=== PATIENT | male | born 1925 | race Caucasian/White ===

== ENCOUNTER 2016-07-08 09:14 | Inpatient (IN) | payer MEDICARE, OTHER ==
[~2016-07-08] VITALS: Ht 182.9 cm; Wt 80.3 kg
[2016-07-18] MEDS ORDERED: COUMADIN1 MG PO (06:16)
[2016-07-18] MEDS ORDERED: PEPCID DPS20 MG PO (06:17)
[2016-07-18] MEDS ORDERED: FEOSOL-DPS325 MG PO (06:17)
[2016-07-18] MEDS ORDERED: LOPRESSOR DPS50 MG PO (06:17)
[2016-07-18] MEDS ORDERED: KLOR-CON M2020 ME1 PO (06:17)
[2016-07-18] MEDS ORDERED: SURFAK DPS240 MG PO (06:18)
[2016-07-18] MEDS ORDERED: SINEMET 25/1001 TAB PO (06:18)
[2016-07-18] MEDS ORDERED: MAALOX DPS30 ML PO (06:18)
[2016-07-18] MEDS ORDERED: TYLENOL DPS325 MG PO (06:18)
[2016-07-18] MEDS ORDERED: REQUIP DPS0.5 MG PO (06:19)
[2016-07-18] MEDS ORDERED: ASA CHILDREN'S81 MG PO (06:19)
[2016-07-27] MEDS ORDERED: MIRALAX PACKET17 GM PO (06:40)
[2016-07-27] MEDS ORDERED: NITROSTAT0.4 MG SL (06:42)
--- NOTE | 2016-07-29 08:03 | ER ---
ADMIT: 07/08/2016 RM/LOC: 526 [facility] MR#: [id number] [address] [address] PIPPA CARD [address] [place] [address] Emergency Room Report SEX: M AGE: 89 : 1925 DATE: 07/08/2016 HISTORY OF PRESENT ILLNESS: An 89-year-old gentleman with 24 to 48 hours worth of increasing generalized weakness. He states he is no longer able to get around his home because he is excessively weak. There are no focal findings. He has no other complaints. No fever or chills. No cough. No vomiting. No diarrhea. No pain anywhere. Just is excessively weak. Says this has been slowly progressive over the past 24 to 48 hours. PAST MEDICAL HISTORY: Significant for: 1. Parkinson's disease. 2. Atrial fibrillation. 3. Cardiac bypass. 4. Chronic wound on the right lower extremity, near the ankle, [facility] which [facility]. PHYSICAL EXAMINATION: GENERAL: Limited exam reveals an 89-year-old gentleman, who is pleasant, conversant, merely says he is feeling too weak to get around his home. LUNGS: Clear to auscultation. CARDIOVASCULAR: He does have a 3/6 systolic ejection murmur. Regular rate and rhythm. ABDOMEN: Soft, nontender, with positive bowel sounds. EXTREMITIES: Reveal well-healing abrasion on the right leg, it is approximately 6 cm in length. LABORATORY DATA: Pertinent labs; white count is 4.9, hemoglobin 8.3. BUN 26, creatinine 1.8. Total bilirubin 2.6. UA is pending at the time of this dictation. Chest x-ray, I cannot see any obvious infiltrates. The patient is being admitted for: 1. Acute renal failure. 2. Anemia. 3. Volume depletion. 4. Hyperbilirubinemia. Salvatore Oliva MD/ sukhdev JOB #: [id number] CC: Justin Wall DO, Attending Physician Justin Wall DO, Family Physician
--- NOTE | 2016-08-05 12:20 | CO ---
ADMIT: 07/10/2016 RM/LOC: 526 [facility] MR#: [id number] [address] [facility] [address] [place], [place] [address] [address]PA [address] [place] [address] Consultation SEX: M AGE: 89 : 1925 DATE OF CONSULTATION: 07/11/2016 ATTENDING PHYSICIAN: Justin Wall CONSULTING PHYSICIAN: Jerzy Gardner MD You can see full dictated consult by Jayson Rivera. Pippa is a pleasant 89-year-old gentleman who had some weakness at home, found to be anemic with hemoglobin of 8.3, denied any real abdominal pain, nausea, or vomiting; maybe a little constipated but had not noticed any blood in his stools. He is on Coumadin and aspirin routinely. His INR when he came in at least on the was 1.58. Actually, it had been significantly high. Yesterday, his INR was 2.57. Today, it is 3.98, and presently I thought they were not giving his Coumadin, so it has been going up almost 4 now interestingly as well. Looking through his records, it looks like in 2014, Dr. Wall had done a colonoscopy a couple of benign tubular adenomas at that time. He denies taking any significant extra aspirin, ibuprofen, or things of that nature. Otherwise from a Jayson dictated history and review of systems, nothing else has changed. I have examined the patient as well. There are no significant acute findings for his abdomen or anything else that makes me worried. We were asked to see him for a colonoscopy and EGD. I will visit with Dr. Wall, it has only been a couple of years but we can plan on prepping him over the next day or so when his INR is back down to reasonable level as long as they are holding his Coumadin and do scopes most likely on . Jerzy Gardner MD/ sukhdev JOB #: [id number] CC: Justin Wall, Attending Physician Justin Wall, Family Physician
--- NOTE | 2016-08-05 12:20 | CO ---
ADMIT: 07/10/2016 RM/LOC: 526 [facility] MR#: [id number] [id number] [place], [place] [address] PIPPA C[address] [place] [address] Consultation SEX: M AGE: 89 : 1925 DATE OF CONSULTATION: 07/11/2016 ATTENDING PHYSICIAN: Justin Wall CONSULTING PHYSICIAN: Jerzy Gardner MD REASON FOR CONSULTATION: Anemia, rule out gastrointestinal blood loss. HISTORY OF PRESENT ILLNESS: Pippa is a very pleasant 89-year-old male, who apparently three days ago had sudden onset of weakness at his home. He was making his bed until he became weak and fell to the floor. He denies hitting his head or any loss of consciousness or syncopal episodes. Because of his symptoms, he was seen in the emergency room and was found to be anemic with a hemoglobin of 8.3. The patient denies any nausea, vomiting, or pain. He goes through cyclic episodes of his bowel movements, where he becomes constipated, takes Ex-Lax and is relieved for short period of time. The patient cannot recall his last bowel movement whether it was dark or bloody. Of note, the patient does take Coumadin and aspirin and has positive cardiac history of 4 times CABG. He denies taking any other blood thinning medications. PAST MEDICAL HISTORY: Significant for Parkinson disease, and atrial fibrillation. PAST SURGICAL HISTORY: 1. CABG x4. 2. He has had numerous colonoscopies in the past and has had polyps from those. 3. There are no previous documentation of colonoscopies in the EHR. ALLERGIES: NO KNOWN DRUG ALLERGIES. MEDICATIONS: Well documented in chart. FAMILY HISTORY: Noncontributory. SOCIAL HISTORY: The patient is a former smoker, but quit approximately 50 years ago. He is rare alcohol drinker and denies illicit drug use. REVIEW OF SYSTEMS: CONSTITUTIONAL: The patient denies any fever, chills, or night sweats. The rest of comprehensive 10-point review of systems was performed and all other systems are negative. PHYSICAL EXAMINATION: GENERAL: The patient is in no acute distress. He is alert and oriented. HEENT: Head is normocephalic and atraumatic. EOMS are intact. Conjunctivae free of icterus or erythema, but positive for pallor. Nose is midline. No tracheal deviation. Pinnae free of deformities. NECK: Supple. SKIN: Positive for pallor. Negative for jaundice, clubbing, edema, or ADMIT: 07/10/2016 RM/LOC: 526 [facility] MR#: [id number] [facility] [place] [address] [address] [address] Consultation SEX: M AGE: 89 : 1925 cyanosis. LUNGS: Wheeze noted in left anterior lung field. Normal respiratory effort. HEART: Distal pulses intact. Regular rate and rhythm. No murmurs noted upon auscultation. ABDOMEN: Soft, nondistended, and nontender. NEURO: Grossly intact. LABORATORY DATA: Hemoglobin 8.8, INR 3.98. ASSESSMENT: 1. Anemia, rule out gastrointestinal bleed. 2. Pneumonia. 3. Acute kidney injury. PLAN: As of now, we will be happy to perform upper and lower endoscopy on the patient, but given his INR, we will have to wait until this trends down into an acceptable range. I will consider reversing him but will discuss that with Dr. Wall should it be warranted. When the INR is in an acceptable range, I will get him on the schedule, and have him prepped for colonoscopy as well as consent for upper endoscopy as well. I discussed this plan with the patient and his family who was present during my whole assessment, which are in agreement of this plan, had all their questions answered and would like to proceed. I will also notify Dr. Gardner of this consult. Thank for the consultation of this patient. ROYER Tejada / Jerzy Gardner MD / sukhdev JOB #: [id number] CC: Justin Wall, Attending Physician Justin Wall, Family Physician
[2016-08-15] MEDS ORDERED: FEOSOL ELI220 MG/5 M PO (18:20)
[2016-08-15] MEDS ORDERED: LASIX DPS40 MG PO (18:20)
[2016-08-15] MEDS ORDERED: COUMADIN1 MG PO (18:20)
[2016-08-15] MEDS ORDERED: ASA CHILDREN'S81 MG PO (18:20)
[2016-08-15] MEDS ORDERED: DUONEB DPS3 ML IH ×2 (18:21→18:23)
[2016-08-15] MEDS ORDERED: MIRALAX PACKET17 GM PO (18:21)
[2016-08-15] MEDS ORDERED: PEPCID DPS20 MG PO (18:21)
[2016-08-15] MEDS ORDERED: LOPRESSOR DPS50 MG PO (18:21)
[2016-08-15] MEDS ORDERED: MAALOX DPS30 ML PO (18:22)
[2016-08-15] MEDS ORDERED: KLOR-CON M2020 ME1 GT (18:22)
[2016-08-15] MEDS ORDERED: TYLENOL DPS325 MG PO (18:22)
[2016-08-15] MEDS ORDERED: SURFAK DPS240 MG PO (18:22)
--- NOTE | 2016-08-16 10:44 | OR ---
ADMIT: 07/10/2016 RM/LOC: 532 [facility] MR#: [id number] [address] [address] [address] [address] [place] [address] Operative/Delivery Room Report SEX: M AGE: 89 : 1925 SURGERY DATE: 07/14/2016 SURGEON: Christiano Flores MD PREOPERATIVE DIAGNOSIS: Anemia, question gastrointestinal blood loss. POSTOPERATIVE DIAGNOSES: 1. Hiatal hernia with Jordan's ulcerations. 2. Mass at the hepatic flexure, concerning for malignancy. PROCEDURE PERFORMED: 1. EGD with biopsies. 2. Colonoscopy with cold biopsies of mass at the hepatic flexure as well as tattooing of that site. ANESTHESIA: Sedation. ESTIMATED BLOOD LOSS: None. DESCRIPTION OF PROCEDURE: After appropriate informed consent was obtained, the patient was brought to the endoscopy suite. IV sedation was provided. A well-lubricated endoscope was introduced and passed down the esophagus. The proximal and mid-esophagus appeared normal. Distal esophagus though did show some evidence of Jordan's ulceration and sliding-type hiatal hernias about 2- 3 cm in length. There was no active bleeding from any of these ulcerations. The scope was advanced through this area into the stomach. The gastric antrum appeared normal. The pylorus intubated. Duodenal bulb, second and third portion of the duodenum appeared normal. The scope was then pulled back. Stomach retroflexed again revealing the Jordan's ulcers from below in the sliding-type hiatal hernia. Several biopsies were taken in the antrum. Biopsies were also taken of the fundus to the area Jordan's ulceration. The stomach was then deflated and the scope withdrawn. Then proceeded with colonoscopy. Rectal exam revealed some moderate hemorrhoids. No rectal mass. Scope was introduced and passed through the entire length of colon. On the way in, at the hepatic flexure, just past the hepatic flexure, under the transverse colon was a mass, was pretty firm and had concerning appearance for colonic malignancy. It was about 3rd of the circumference of the colon at that area. Multiple biopsies were taken with ADMIT: 07/10/2016 RM/LOC: 532 [facility] MR#: [id number] [address] [place] [id number] [address] [place] [address] Operative/Delivery Room Report SEX: M AGE: 89 : 1925 cold biopsy forceps and then I tattooed this site just distal to this to this mass or tumor. I was able to easily advanced past this area down into the cecum. The ileocecal valve and appendiceal orifice appeared normal. The scope was slowly withdrawn. Again, this mass was inspected again and it appeared hemostatic, where I taken the biopsies and the tattoo appeared to be in good position. The scope was then slowly withdrawn. The rest of the colon appeared normal on the way out. No other polyps or masses were identified. The scope was retroflexed in the rectum, revealing moderate size internal hemorrhoids. No rectal masses. The patient tolerated the procedure well, was taken to the recovery room in stable condition. Christiano Flores MD/ sukhdev JOB #: [id number] CC: Justin Wall, Attending Physician Justin Wall, Family Physician Justin Wall, DO
--- NOTE | 2016-09-06 08:17 | DS ---
ADMIT: 07/10/2016 RM/LOC: 532 [facility] MR#: [id number] [address] [address] [place] [address] Discharge Summary SEX: M AGE: 89 : 1925 ADMISSION DATE: 07/10/2016 DISCHARGE DATE: 07/17/2016 REASON FOR HOSPITALIZATION: General weakness and mental status decline. HISTORY OF PRESENT ILLNESS: This is an 89-year-old, frail, male patient, who presented and was initially evaluated in the emergency room and then by Dr. Luz, felt to have an early pneumonia. He did have recent hospitalization and anemia workup with CT scan of the abdomen and pelvis. Because of his general weakness and anemia, we did decide to pursue further assessment during this hospitalization to include colonoscopy. We treated his pneumonia and had him undergo a speech evaluation to consider the potential for aspiration. I started him on iron supplementation. On CAT scan of his abdomen, he was found to have a 9 mm pulmonary nodule in the right middle lobe. We then had him undergo CT scan dedicated to the chest, where he was found to have effusion, atelectasis, pleural plaques, hepatic cysts, and right middle lobe scarring. His Coumadin was withheld in preparation for possible colonoscopy and Surgery was consulted, and they gave him vitamin K to reverse his elevated INR, and Dr. Flores took him to the GI suite and found a hepatic flexure mass on colonoscopy. Biopsies were obtained. On operative evaluation, he was found to have a Jordan's ulcers. His Coumadin was restarted and monitored. On 07/16, we noted him to be confused. I stopped his antibiotics, held his Parkinson's therapies, and we disease opted to watch his mental status. By 07/17, he was better, he was cooperative, and we felt he was appropriate to transfer to shelter for recuperation. Orders were written for him to resume his Sinemet and Requip, and to have a basic metabolic profile, and CBC performed in 1 week. FINAL DIAGNOSES: 1. Pneumonia, resolved. 2. Hepatic flexure mass. 3. Anemia. 4. Parkinson's disease. 5. Hiatal hernia. 6. Jordan's ulcers. 7. Chronic atrial fibrillation and anticoagulation therapy. Justin Wall DO/ sukhdev JOB #: [id number] CC: Justin Wall DO, Attending Physician Justin Wall DO, Family Physician
== END 2016-07-17 10:55 | DRG 374 ==
LOC: ER 09:14 → 5MS 10:45
PROVIDERS: ADMIT Internal Medicine
PROC: 0DB68ZX Excision of Stomach, Via Natural or Artificial Opening Endoscopic, Diagnostic (ICD-10-PCS; principal; 2016-07-14)
PROC: 0DBF8ZX Excision of Right Large Intestine, Via Natural or Artificial Opening Endoscopic, Diagnostic (ICD-10-PCS; principal; 2016-07-14)
DX: C18.3 Malignant neoplasm of hepatic flexure (principal); J18.9 Pneumonia, unspecified organism; N17.9 Acute kidney failure, unspecified; J44.0 Chronic obstructive pulmonary disease with (acute) lower respiratory infection; G20 Parkinson's disease; E86.9 Volume depletion, unspecified; I48.91 Unspecified atrial fibrillation; K25.9 Gastric ulcer, unspecified as acute or chronic, without hemorrhage or perforation; D64.9 Anemia, unspecified; T24.001D Burn of unspecified degree of unspecified site of right lower limb, except ankle and foot, subsequent encounter; X19.XXXD Contact with other heat and hot substances, subsequent encounter; I12.9 Hypertensive chronic kidney disease with stage 1 through stage 4 chronic kidney disease, or unspecified chronic kidney disease; N18.9 Chronic kidney disease, unspecified; K44.9 Diaphragmatic hernia without obstruction or gangrene; K64.9 Unspecified hemorrhoids; Z95.1 Presence of aortocoronary bypass graft; Z87.891 Personal history of nicotine dependence; Z95.0 Presence of cardiac pacemaker; Z86.73 Personal history of transient ischemic attack (TIA), and cerebral infarction without residual deficits

== ENCOUNTER 2016-07-20 13:09 | Inpatient (IN) | payer MEDICARE, OTHER ==
[~2016-07-20] VITALS: Ht 182.9 cm; Wt 79.0 kg
--- NOTE | ~2016-07-20 | ECH ---
Transthoracic Echocardiography Report (TTE) Demographics Patient Name PIPPA CARD Date of Study 07/21/2016 Patient Number [id number] Visit Number [id number] Date of 1925 Room Number 420 Accession Number [id number] Gender Male Age 89 year(s) Referring Mae Chen MD Technical Support Manager Swati Bynum [facility] Physician Kirstin Mendoza Physician Interpreting [facility] Nick R [employer] Dr[employer] Manager Physician MD Supervising Ordering Physician Kirstin Mendoza MD, MD/P Nurse Stress Cloud Consultant Conclusions Summary Technically good exam. The estimated left ventricular ejection fraction is 55%. Mildly dilated right ventricle with normal function. The left atrium is severely dilated by LA volume index measurement. The right atrium is mild to moderately dilated. Mild-moderate mitral regurgitation by color Doppler. There is moderate aortic stenosis by the Continuity Equation. The peak velocity is 3.5 m/s, the mean gradient is 31 mmHg, and the valve area based on the continuity equation is 0.7 cm2, stroke volume index is 25 ml/m2. Peak velocity obtained in apical view. There is mild aortic regurgitation by color Doppler. Moderate tricuspid regurgitation by color Doppler. There is moderate pulmonary hypertension. The pulmonary pressure (RVSP) is 48 mmHg. The ascending aorta appears mildly dilated. The maximum diameter measures 3.9 cm. Procedure Type of Study TTE procedure:Echo Complete SF. Procedure Date Date: 07/21/2016 Start: 10:48 AM Technical Quality: Good visualization Indications:Atrial fibrillation, pacemaker/defibrillator, Hypertension, Diabetes and History of CABG. Additional Indications:Possible pulmonary embolus Appropriate Use Criteria: 9 Height: 72 inches Weight: 172 pounds BSA: 2 m Rhythm: Paced HR: 75 bpm BP: 139/77 mmHg M-Mode/2D Measurements LV Diastolic Dimension: 5.6 cm LV Systolic Dimension: 4.35 cm LV Septum Diastolic: 0.98 cm LV PW Diastolic: 0.98 cm AO Root Dimension: 3.55 cm Cardiac Output: 3.72 l/min LA Dimension: 3.8 cm Cardiac Index: 1.86 l/min*m RV Diastolic Dimension: 4.1 cm LA volume index: 70 ml/m LVOT: 2.03 cm LVOT VTI: 15.35 cm RV Base: 4.9 cm LV Stroke volume: 49.66 ml RV Mid: 2.9 cm LV Stroke volume index: 24.83 ml/m TAPSE: 2.3 cm TDI-S': 11 cm/s Doppler Measurements AV Peak Velocity: 3.5 m/s MV Peak E-Wave: 1.06 m/s AV Peak Gradient: 49 mmHg AV Mean Gradient: 31.21 mmHg MV P1/2t: 59.7 msec LVOT Peak Velocity: 0.94 m/s AV Area (Continuity):0.71 cm AV P1/2t: 423.9 msec MV Area (PHT): 3.69 cm TR Velocity:3.26 m/s PV Peak Velocity: 0.9 m/s TR Gradient:42.51 mmHg PV Peak Gradient: 3.27 mmHg Estimated RAP:5 mmHg Estimated PASP: 47.51 mmHg Estimated RVSP: 48 mmHg A' Lateral Velocity: 0.05 m/s E' Septal Velocity: 0.07 m/s E' Lateral Velocity: 0.1 m/s RA Area: 24.51 cm Findings Left Ventricle Normal left ventricle size and function. Diastolic function indeterminate due to patient's arrhythmia. Right Ventricle Mildly dilated right ventricle with normal function. Device lead noted in the right ventricle. Left Atrium The left atrium is severely dilated by LA volume index measurement. Right Atrium The right atrium is mild to moderately dilated. Device lead seen in the right atrium. Mitral Valve Normal mitral valve structure and function. Mild-moderate mitral regurgitation by color Doppler. Aortic Valve There is moderate aortic stenosis by the Continuity Equation. The peak velocity is 3.5 m/s, the mean gradient is 31 mmHg, and the valve area based on the continuity equation is 0.7 cm2, stroke volume index is 25 ml/m2. Peak velocity obtained in apical view. There is mild aortic regurgitation by color Doppler. Tricuspid Valve Normal tricuspid valve structure and function. Moderate tricuspid regurgitation by color Doppler. There is moderate pulmonary hypertension. The pulmonary pressure (RVSP) is 48 mmHg. Pulmonic Valve Normal pulmonic valve structure and function. Mild pulmonic valve regurgitation by color Doppler. Pericardial Effusion No evidence of pericardial effusion. Miscellaneous The ascending aorta appears mildly dilated. The maximum diameter measures 3.9 cm. Pleural Effusion No evidence of pleural effusion. Contractility Score LV regional wall motion:(0-Non visualized 1-Normal 2-Hypokinesis 3-Akinesis 4-Dyskinesis 5-Aneurysm) Signature Electronically signed by Mil[facility]) on 07/21/2016 04:32 PM
--- NOTE | ~2016-07-20 | ER ---
ADMIT: 07/20/2016 RM/LOC: ER [facility] MR#: [id number] [address] [facility] [address] [place] [address] Emergency Room Report SEX: M AGE: 89 : 1925 DATE: 07/20/2016 ADDENDUM: An 89-year-old white male coming in with decreased level of conscious and confusion, has a history of Parkinson's, cardiac disease, diaphragmatic hernia, recent colon cancer diagnosis. Actually, he had been doing pretty good up until the last several weeks. They sent him over because he was decrease arousable. CT scan is negative. He does wake up if you stimulate him, but he is still quite slow, becomes quite somnolent. Chest x- ray, negative. CT head as noted was negative. CBC shows hemoglobin of 9.3, troponin is 0.069. BNP 12,000. Chemistries are otherwise negative. He has a paced rhythm but we are having the tech come in and check it. I spoke with Dr. Fulton, covering for Dr. Wall. She will admit. CONDITION ON DISCHARGE: Serious but stable at this time. Jayson Price MD/ michaell JOB #: [id number] CC: Jayson Price MD, Attending Physician
[~2016-07-20 13:09] MED LIST: ASA CHILDREN'S81 MG PO; COUMADIN1 MG PO; FEOSOL-DPS325 MG PO; KLOR-CON M2020 ME1 PO; LOPRESSOR DPS50 MG PO; MAALOX DPS30 ML PO; PEPCID DPS20 MG PO; REQUIP DPS0.5 MG PO; SINEMET 25/1001 TAB PO; SURFAK DPS240 MG PO; TYLENOL DPS325 MG PO
--- NOTE | 2016-07-25 10:00 | ER ---
ADMIT: 07/20/2016 RM/LOC: 420 [facility] MR#: [id number] [address] [address] [place] [address] Emergency Room Report SEX: M AGE: 89 : 1925 DATE: 07/20/2016 ADDENDUM: His CTA chest came back with impression of incomplete opacification of left lower lobe, pulmonary artery suspicious for pulmonary embolism. Stable moderate bilateral pleural effusion. His pacer interrogation reads as the patient has a single chamber pacer 1-1/2 years left on battery. The patient has episode of RVR, last noted was 17 of July. His INR 1.62 with PT of 17.1. The patient is admitted by Dr. Fulton at 1705 hours. The patient is awaiting room placement. ROYER Kerns / Jayson Price MD / michaell JOB #: [id number] CC: Justin Wall DO, Attending Physician Justin Wall DO, Family Physician
[2016-07-27] MEDS ORDERED: MIRALAX PACKET17 GM PO (06:40)
[2016-07-27] MEDS ORDERED: NITROSTAT0.4 MG SL (06:42)
--- NOTE | 2016-07-27 08:02 | HP ---
ADMIT: 07/20/2016 RM/LOC: 420 [facility] MR#: [id number] [address] [address] [place] [address] History and Physical SEX: M AGE: 89 : 1925 Corrected: 07/25/2016 1032 richard DATE OF SERVICE: HISTORY OF PRESENT ILLNESS: Pippa is an elderly, 89-year-old white gentleman, who has a past medical history of Parkinson disease, atrial fibrillation, bypass, currently through his right lower extremity, who recently within the last three weeks was hospitalized with increased generalized weakness and underwent further assessment which was complicated by acute renal failure, creatinine of 1.8, anemia, volume depletion, and hyperbilirubinemia, requests further assessment, he was found to have evidence of a mass at the hepatic flexure. Biopsies showed evidence of adenocarcinoma. He was chronically anticoagulated and returned to the care home for strengthening, comes back to the hospital with increasing shortness of breath and weakness. The family members have not told him that we have the diagnosis of cancer. His daughter from [place] is playing phone tag with Dr. Flores, and working towards telling her father his diagnosis as well as plan of action for care. In evaluation in the emergency room, he was found to have a white count of 8.5, hemoglobin 9.3, platelet count 247,000. INR of 1.62. CK-MB were normal. Troponin was mildly elevated at 0.063. CT of chest showed moderate pleural effusion, questionable pulmonary embolus what was felt to be pulmonary embolism. CT of the brain showed atrophy. He was subsequently admitted for continued evaluation and care. PAST MEDICAL HISTORY: As above. SOCIAL HISTORY: He is currently in the care home. MEDICATIONS: Current medications are: 1. Aspirin 81 mg daily. 2. Iron. 3. Coumadin 2 mg every afternoon. 4. Potassium 20 mEq daily. 5. Lopressor 50 mg b.i.d. 6. NovoLog. 7. Pepcid. 8. Requip. 9. Sinemet. 10.Surfak. 11.Tylenol. PHYSICAL EXAMINATION: GENERAL: He is pale. HEENT: Normal. HEART: Regular rhythm with a soft systolic murmur, grade 2/6. LUNGS: Clear but diminished to auscultation. ABDOMEN: Soft, nontender, and nondistended. EXTREMITIES: No evidence of peripheral edema. ASSESSMENT AND PLAN: History of Parkinson disease, atrial fibrillation, has ADMIT: 07/20/2016 RM/LOC: 420 [facility] MR#: [id number] [address] [address] [facility] [place] [address] History and Physical SEX: M AGE: 89 : 1925 been off anticoagulation, and subsequently resumed with evidence of possible pulmonary embolism. Venous thrombosis is ruled out with a negative Dopplers. He is sub-therapeutically anticoagulated. We will move his anticoagulation and promote an INR of 2 to 3. We will give him Lovenox as well as his Coumadin. 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 We will get that for our review. We will do a CEA and followup in addition. Renal insufficiency, creatinine is improved at 1.3, has mild bump in troponin, we will check an echocardiogram for further assessment. He is anemic, but hemoglobin is stable at 9.3. We will await any further workup of this colon cancer and definitive care and tell his daughter has come from [place] to tell him his diagnosis. We will make sure that his INR is therapeutic until decisions are made. We will continue to follow closely. His home medications will be reviewed as appropriate. His creatinine is stable. Basilia Fulton MD/ sukhdev JOB #: [id number] CC: Justin Wall, Attending Physician Justin Wall, Family Physician Corrected: 07/25/2016 1032 richard
[2016-08-15] MEDS ORDERED: FEOSOL ELI220 MG/5 M PO (18:20)
[2016-08-15] MEDS ORDERED: COUMADIN1 MG PO (18:20)
[2016-08-15] MEDS ORDERED: LASIX DPS40 MG PO (18:20)
[2016-08-15] MEDS ORDERED: ASA CHILDREN'S81 MG PO (18:20)
[2016-08-15] MEDS ORDERED: PEPCID DPS20 MG PO (18:21)
[2016-08-15] MEDS ORDERED: LOPRESSOR DPS50 MG PO (18:21)
[2016-08-15] MEDS ORDERED: DUONEB DPS3 ML IH ×2 (18:21→18:23)
[2016-08-15] MEDS ORDERED: MIRALAX PACKET17 GM PO (18:21)
[2016-08-15] MEDS ORDERED: KLOR-CON M2020 ME1 GT (18:22)
[2016-08-15] MEDS ORDERED: SURFAK DPS240 MG PO (18:22)
[2016-08-15] MEDS ORDERED: TYLENOL DPS325 MG PO (18:22)
[2016-08-15] MEDS ORDERED: MAALOX DPS30 ML PO (18:22)
--- NOTE | 2016-08-16 10:44 | CO ---
ADMIT: 07/20/2016 RM/LOC: 420 [facility] MR#: [id number] [address] [address] [place] [address] Consultation SEX: M AGE: 89 : 1925 DATE OF CONSULTATION: 07/24/2016 ATTENDING PHYSICIAN: Justin Wall CONSULTING PHYSICIAN: Christiano Flores MD REASON FOR CONSULTATION: Adenocarcinoma at the hepatic flexure, confirmed with pathology. HISTORY OF PRESENT ILLNESS: Pippa is a very pleasant 89-year-old male, who we actually did upper and lower endoscopy on approximately 10 days ago for anemia. At that time, there is a mass concerning for cancer that was biopsied, which is now currently the adenocarcinoma of the colon at hepatic flexure. He also did have hiatal hernia and some ulceration at that time as well. Since then, the patient has been admitted and seen for a couple of falls and confusion and low O2 saturation. He has thus been admitted to the hospital, fully worked up and revealed to have pulmonary embolism. Currently, the patient denies any shortness of breath but he does have some weakness. He further denies any bright red blood per rectum, diarrhea, constipation, or any pain for that matter. He does have some dark stools but he believes this is from taking iron supplementation. Otherwise, there has been no other change from his last admission. PAST MEDICAL HISTORY: Unchanged from before. Significant for Parkinson's disease and atrial fibrillation. PAST SURGICAL HISTORY: Unchanged from before. Significant for CABG x4, previous colonoscopies with polyp. ALLERGIES: NO KNOWN DRUG ALLERGIES. MEDICATIONS: Well documented in the chart. FAMILY HISTORY: Noncontributory. SOCIAL HISTORY: Unchanged from previous admission. REVIEW OF SYSTEMS: The patient denies any fever, chills, or night sweats. The rest of the comprehensive 10-point review of systems was performed and all other systems are negative. PHYSICAL EXAMINATION: GENERAL: The patient is in no acute distress. He is alert and oriented. HEENT: Head is normocephalic and atraumatic. EOMS are intact. Conjunctivae positive for pallor. Negative for jaundice or erythema. EOMs are intact. Pinnae free of deformities. Nose, midline. No tracheal deviation. NECK: Supple. Skin positive for pallor. Negative for jaundice, clubbing, edema, or cyanosis. LUNGS: Normal respiratory effort. ADMIT: 07/20/2016 RM/LOC: 420 [facility] MR#: [id number] [address] [address] [place] [address] Consultation SEX: M AGE: 89 : 1925 HEART: Distal pulses intact. Irregularly irregular rhythm. ABDOMEN: Soft, nondistended, and nontender. NEURO: Grossly intact. LABORATORY DATA: Hemoglobin is 8.8. ASSESSMENT: 1. Adenocarcinoma of the colon at the hepatic flexure. 2. Pulmonary embolism. PLAN: So far, we will hold off doing any abdominal surgery for this patient until he gets his strength back and he has been treated for his pulmonary embolism. The family is in agreement of this plan, had all their questions answered and would like to proceed. In the meantime; however, I will get a CT of his abdomen and pelvis just to further assess tumor burden. We will follow him and see how he does but we will definitely follow up with him once he is discharged from the hospital for his PE. Thank you for the consultation of this patient. ROYER Tejada / Christiano Flores MD / sukhdev JOB #: [id number] CC: Justin Wall, Attending Physician Justin Wall, Family Physician
--- NOTE | 2016-09-06 08:17 | DS ---
ADMIT: 07/20/2016 RM/LOC: 420 [facility] MR#: [id number] [address] [address] [place] [address] Discharge Summary SEX: M AGE: 89 : 1925 ADMISSION DATE: 07/20/2016 DISCHARGE DATE: 07/25/2016 This is an 89-year-old male patient, who presented back to the hospital after complaints of general weakness, dyspnea, and scan findings suggesting a possible pulmonary embolism. Dr. Fulton performed his initial assessment and arranged for initial cares. He was admitted and underwent lab evaluation, given Coumadin, underwent echocardiogram and started on Lovenox. His daughter felt that he was suffering from a left facial droop. CAT scan of the head was performed and echocardiogram revealed moderate aortic stenosis. Dr. Flores was asked to monitor in and assist with cares in preparation for possible future colectomy for a hepatic flexure mass consistent with adenocarcinoma. He was ultimately felt to be stable and capable of going back to the alf for convalescence before any surgical planning would be made. He was dismissed with final diagnoses of: FINAL DIAGNOSES 1. General weakness. 2. Pulmonary embolism with plans for chronic Coumadin therapy. 3. Colon cancer. 4. Parkinson's disease. 5. Anemia. Justin Wall DO/ modl JOB #: [id number] CC: Justin Wall DO, Attending Physician Justin Wall DO, Family Physician
== END 2016-07-25 14:02 | DRG 176 ==
LOC: ER 13:09 → 4PCU 17:09
PROVIDERS: ADMIT Internal Medicine
DX: I26.99 Other pulmonary embolism without acute cor pulmonale (principal); G20 Parkinson's disease; C18.3 Malignant neoplasm of hepatic flexure; I48.91 Unspecified atrial fibrillation; I35.0 Nonrheumatic aortic (valve) stenosis; D63.0 Anemia in neoplastic disease; K44.9 Diaphragmatic hernia without obstruction or gangrene; Z95.0 Presence of cardiac pacemaker; Z95.1 Presence of aortocoronary bypass graft; Z79.82 Long term (current) use of aspirin; Z79.4 Long term (current) use of insulin

== ENCOUNTER 2016-08-04 14:39 | Inpatient (IN) | payer MEDICARE, OTHER ==
[~2016-08-04] VITALS: Ht 182.9 cm; Wt 68.4 kg
[~2016-08-04 14:39] MED LIST changes: +MIRALAX PACKET17 GM PO; +NITROSTAT0.4 MG SL
--- NOTE | 2016-08-08 14:35 | CO ---
ADMIT: 08/04/2016 RM/LOC: 309 [facility] MR#: [id number] [address] [address] [place] [address] Consultation SEX: M AGE: 89 : 1925 DATE OF CONSULTATION: 08/07/2016 ATTENDING PHYSICIAN: Justin Wall CONSULTING PHYSICIAN: Destiny Preston APRN TIME IN: 1250 hours. TIME OUT: 1320 hours. REASON FOR CONSULTATION: Supportive care consultation was requested by Dr. Wall for discussion of goals for care and feeding tube. HISTORY OF PRESENT ILLNESS: Mr. Oseguera is an 89-year-old, male with a history of Parkinson disease, who has suffered a significant decline over the course of the past month or so. This began in the beginning of July when he was diagnosed with adenocarcinoma of the colon. The initial plan was to have the patient undergo surgery. However, he has been hospitalized multiple times over the course of the past month for various issues including a pulmonary embolism and weakness. He was unfortunately readmitted again on August 04 with decreased level of consciousness. X-ray showed a right lower lobe infiltrate and there was concern for aspiration. He has met sepsis criteria. He has also had issues with heart failure. In addition to these issues, he has had ongoing problems with delirium and continues to be agitated and confused. He has not slept for 60 hours according to his daughter. As mentioned, there was concern for aspiration. Therefore, Speech Therapy has been following him and recommended a modified barium swallow which was completed today. He unfortunately did not do well with this secondary to his inability to follow commands from confusion and also due to the fact that he had absent swallow initiation at times. At this time, the recommendation has been for the patient to be n.p.o. Dr. Wall did order an NG tube be placed for tube feeding initiation. Due to his complexities, supportive care consultation was requested to discuss goals for care. In terms of advanced directives, the patient does have a healthcare power-of- environmental planning engineer and living will paperwork on file. The patient's daughters, Janny Dawson, whose phone number is [phone], and Migdalia Oseguera, whose phone number is [phone], are his healthcare [id number]. Symptomatically, the patient is overtly delirious. He is weak and debilitated. He does cough intermittently which makes me suspect aspiration. He denies pain or other discomfort currently. PAST MEDICAL HISTORY: Parkinson disease, atrial fibrillation, heart failure, recent pulmonary embolism, recent pneumonia. ALLERGIES: THE PATIENT IS ALLERGIC TO CONTRAST DYE. CURRENT MEDICATIONS: Please see the patient's MAR for specific routes and ADMIT: 08/04/2016 RM/LOC: 309 [facility] MR#: [id number] [facility] [address] [address] [place] [address] Consultation SEX: M AGE: 89 : 1925 dosages. His current medications are as follows: 1. Pepcid. 2. Haldol. 3. Feosol. 4. Potassium chloride. 5. MiraLax. 6. Aspirin. 7. Lasix. 8. Lopressor. 9. DuoNeb. 10.Nitro drip. 11.Surfak. 12.Maalox. 13.Tylenol. 14.Nitrostat. 15.Zosyn. 16.Chloraseptic spray. 17.Xylocaine jelly. 18.Afrin. SOCIAL HISTORY: Up until the last month, the patient had actually been in fairly good health. He was living at home but recently moved to [facility]. He is a former smoker but quit about 50 years ago. He rarely used alcohol prior to his decline and did not use illicit drugs. FAMILY HISTORY: Reviewed and noncontributory. FUNCTIONAL REVIEW: Prior to his hospital stay, he was living at the [facility] according to his daughter. He could walk with a walker. He was needing considerable assistance with ADLs. He was confused at times. His palliative performance scale prior to admission was around 40%. Currently, he is total care. He is requiring assistance for transferring. His intake is reduced. He is confused and delirious. His current palliative performance score is a 30% to 40%. REVIEW OF SYSTEMS: A 10-point review of systems was attempted. However, due to the patient's mentation, this was unable to be obtained. PHYSICAL EXAMINATION: GENERAL: The patient is examined in the bed. He is in no acute distress. He is coughing intermittently. VITAL SIGNS: Temperature 96.4, pulse 76, respirations 20, blood pressure 138/69, oxygen 98% on room air. HEENT: Head is normocephalic. Pupils are 3 mm bilaterally and brisk. Oral mucosa pink and moist with fair dentition. NECK: Supple. RESPIRATORY: Respirations are equal and nonlabored. He is slightly coarse over the right lung. CARDIOVASCULAR: Rate and rhythm are regular without murmurs, rubs, or ADMIT: 08/04/2016 RM/LOC: 309 [facility] MR#: [id number] [facility] [address] [address] [place] [address] Consultation SEX: M AGE: 89 : 1925 gallops. He does have 2+ edema over the left upper extremity and 1 to 2+ bilateral lower extremity edema. GASTROINTESTINAL: Soft, nontender. Bowel sounds are positive. Last bowel movement was today. GENITOURINARY: He is voiding in the urinal. MUSCULOSKELETAL: Generalized weakness. INTEGUMENTARY: Skin turgor is fair. NEUROLOGIC: Alert to voice. Disoriented x3. PSYCHIATRIC: Delirious and agitated at times. DIAGNOSTIC DATA: Sodium 140, potassium 4.1, BUN 33, creatinine 1.9, total protein 6.2, albumin 2.5. WBCs 12.8, hemoglobin 9.0, hematocrit 29.7, platelets are 279. IMPRESSION: 1. Physical debility. 2. Delirium. 3. Fatigue. 4. Malaise. 5. Moderate protein-calorie malnutrition. 6. Dysphagia. 7. Aspiration pneumonia. 8. Heart failure. 9. Adenocarcinoma of the colon. 10.Parkinson disease. 11.Palliative care. 12.The patient is a DNR/DNI. PLAN: 1. I was able to meet with the patient's daughter, Selina, outside the room. At the time of assessment, the patient is delirious and unable to participate in medical decision making. We reviewed the patient's overall status and goals for the time ahead. The patient's daughter describes a significant decline over the past month and she becomes sad when discussing this. She states the original plan was for him to undergo surgery for his colon cancer. However, she is unsure if this will be able to happen due to his overall status. She is stating that she would like to talk to Dr. Flores realistically about his prognosis in terms of the cancer to determine if immediate surgery is something that they need to look at. At this point, she would like to see how things go in the upcoming days in terms of his mentation and overall status. She is agreeable to the NG tube on a short-term basis. She is very clear that the patient would not want to have a PEG tube or live on long-term tube feeding. She states that if the patient continues to decline that they will likely head towards more of a comfort or hospice approach to care rather than continuing ongoing aggressive care. She does agree to ongoing discussions in the time ahead pending his status. 2. We did review code status and she confirms that the patient is a do not ADMIT: 08/04/2016 RM/LOC: 309 [facility] MR#: [id number] [address] [address] [place] [address] Consultation SEX: M AGE: 89 : 1925 resuscitate/do not intubate status. 3. The patient's delirium is significantly impacting his overall status. Per the patient's daughter, the Haldol actually worsened his agitation last night. With the patient's Parkinson disease, I would recommend stopping the Haldol and using a typical antipsychotic such as Seroquel at bedtime and p.r.n. He would likely benefit from this being scheduled at least for a few days in an attempt to get his agitation and delirium under better control. It would be reasonable to try to wean this off after his behaviors were fairly well controlled. I will defer to Dr. Wall regarding this as he knows the patient well. The patient's nurse states that she will talk to Dr. Wall later regarding the daughter's concerns with the Haldol. 4. We will continue to follow along in the care of this kind but complex patient. We would like to thank Dr. Wall for the invitation to participate in this patient's care. Total consultation time was 65 minutes from 1215 hours to 1320 hours with 40 minutes from 1220 hours to 1300 hours spent [id number] with the patient or his daughter discussing goals for care and providing counseling and support. We will continue to follow along in the days ahead. The plan of care was discussed with Nursing. Destiny Preston APRN/ sukhdev JOB #: [id number] CC: Justin Wall, Attending Physician Justin Wall, Family Physician
[2016-08-15] MEDS ORDERED: COUMADIN1 MG PO (18:20)
[2016-08-15] MEDS ORDERED: ASA CHILDREN'S81 MG PO (18:20)
[2016-08-15] MEDS ORDERED: LASIX DPS40 MG PO (18:20)
[2016-08-15] MEDS ORDERED: FEOSOL ELI220 MG/5 M PO (18:20)
[2016-08-15] MEDS ORDERED: PEPCID DPS20 MG PO (18:21)
[2016-08-15] MEDS ORDERED: MIRALAX PACKET17 GM PO (18:21)
[2016-08-15] MEDS ORDERED: LOPRESSOR DPS50 MG PO (18:21)
[2016-08-15] MEDS ORDERED: DUONEB DPS3 ML IH ×2 (18:21→18:23)
[2016-08-15] MEDS ORDERED: KLOR-CON M2020 ME1 GT (18:22)
[2016-08-15] MEDS ORDERED: TYLENOL DPS325 MG PO (18:22)
[2016-08-15] MEDS ORDERED: MAALOX DPS30 ML PO (18:22)
[2016-08-15] MEDS ORDERED: SURFAK DPS240 MG PO (18:22)
--- NOTE | 2016-08-23 11:50 | ER ---
ADMIT: 08/04/2016 RM/LOC: ER [facility] MR#: [id number] [address] [address] [place] [address] Emergency Room Report SEX: M AGE: 89 : 1925 DATE: 08/04/2016 ADDENDUM: An 89-year-old white male coming in after being found unresponsive at the half-way. He does have a right lobe infiltrate, so he is cultured up as sepsis. His pressure has been fine. His lactate is 1.4, and white count of 6.6. He does have an elevated BNP at 64. Troponin is up a little bit at 0.078. EKG nothing acute. He does have atrial fibrillation I do believe as far as a previous rhythm. Dr. Wall has been notified after we started Zosyn and clindamycin. Family is spoken with. CONDITION ON DISCHARGE: Critical. Jayson Price MD/ sukhdev JOB #: [id number] CC: Jayson Price MD, Attending Physician UNKNOWN, Family Physician
--- NOTE | 2016-09-06 08:17 | DS ---
ADMIT: 08/04/2016 RM/LOC: 521 [facility] MR#: [id number] [address] [address] [place] [address] Discharge Summary SEX: M AGE: 89 : 1925 ADMISSION DATE: 08/04/2016 DISCHARGE DATE: 08/14/2016 REASON FOR HOSPITALIZATION: Unresponsiveness. HISTORY OF PRESENT ILLNESS: The patient presented to the emergency room from the skilled nursing after they had found him to be unresponsive. In the emergency room, he was felt to have a right lower lobe infiltrate and a sepsis workup was initiated. 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 CT scan of his brain was negative. Chest x-ray showed right-sided pneumonia and he did suffer a recent pulmonary embolism, so we continued to manage with anticoagulants. He was started on IV antibiotic, IV steroid, hydration, nebulized treatments and made DNR/DNI consistent with he and his family's wishes. We asked to Speech to evaluate for aspiration possibility. I added clindamycin to his antibiotic regimen. He did have some sustained SVT and atrial fibrillation. He was started on metoprolol and given a dose of Lanoxin. I do know that he has aortic stenosis, so we managed his fluid status with occasional dose of Lasix and careful fluids. By 08/06, his pneumonia was noted to be improved. Zosyn and clindamycin were continued and Speech assisted with his care. He did have Nutrition follow and they made recommendations for appropriate care and support. His family reported that he is having some swelling in his upper extremities, so we did venous ultrasound which was negative for clot. His delirium did have some general improvement and he did have hypokalemia which was replaced. We felt that his pneumonia was slowly improving, malnutrition was being addressed, delirium was improved, and his chronic anticoagulation therapy for pulmonary embolism was monitored and managed. After a lengthy hospital course, he stabilized. We were able to start getting him up in chair, and advancing his diet. Daughter and family desire that he go back to skilled nursing. We had Boarding Mother help with these arrangements. By 08/13 he was stable, and we made arrangements for him to go to the skilled nursing. We did x-ray his left shoulder for pain and decreased mobility, finding only significant degeneration. On 08/14, we felt he was stable to dismiss. He was dismissed to [facility] to return to see me in 10 to 14 days. He was to receive outpatient followup with Dr. Flores to review timing for his cancer colon resection. He was dismissed with a diagnoses of: ADMIT: 08/04/2016 RM/LOC: 521 [facility] MR#: [id number] [address] [place] [phone] [place] [address] Discharge Summary SEX: M AGE: 89 : 1925 FINAL DIAGNOSES: 1. Pneumonia. 2. Aspiration. 3. Delirium. 4. Parkinson disease. 5. Acute kidney injury. 6. Dehydration. 7. Colon cancer. 8. Malnutrition. 9. Anemia. 10.History deep venous thrombosis, anticoagulation therapy. Justin Wall DO/ modl JOB #: [id number] CC: Justin Wall DO, Attending Physician Justin Wall DO, Family Physician
== END 2016-08-14 11:30 | DRG 177 ==
LOC: ER 14:39 → 3ICU 16:55 → 5MS 16:55 → 3ICU 20:00 → 5MS 08-08 17:53
PROVIDERS: ADMIT Internal Medicine
DX: J69.0 Pneumonitis due to inhalation of food and vomit (principal); I50.41 Acute combined systolic (congestive) and diastolic (congestive) heart failure; N17.9 Acute kidney failure, unspecified; E44.0 Moderate protein-calorie malnutrition; E86.0 Dehydration; G20 Parkinson's disease; F05 Delirium due to known physiological condition; C18.3 Malignant neoplasm of hepatic flexure; I48.91 Unspecified atrial fibrillation; I50.9 Heart failure, unspecified; I34.0 Nonrheumatic mitral (valve) insufficiency; I35.0 Nonrheumatic aortic (valve) stenosis; E87.6 Hypokalemia; D63.0 Anemia in neoplastic disease; Z86.711 Personal history of pulmonary embolism; Z87.891 Personal history of nicotine dependence; Z79.82 Long term (current) use of aspirin; Z66 Do not resuscitate; Z79.01 Long term (current) use of anticoagulants

== ENCOUNTER → 2016-09-01 | Outpatient (CLI) | payer OTHER, MEDICARE ==
[~2016-09-01] MED LIST changes: +DUONEB DPS3 ML IH; +FEOSOL ELI220 MG/5 M PO; +KLOR-CON M2020 ME1 GT; +LASIX DPS40 MG PO
== END | disposition home or self-care (01) ==
LOC: PTH.S 09:56
DX: Z01.818 Encounter for other preprocedural examination (principal)

== ENCOUNTER 2016-09-06 10:04 | Inpatient (IN) | payer MEDICARE, OTHER ==
[~2016-09-06] VITALS: Ht 182.9 cm; Wt 87.1 kg
--- NOTE | ~2016-09-06 | OR ---
ADMIT: 10/11/2016 RM/LOC: 523 [facility] MR#: [id number] [address] [address] [facility] [place] [address] Operative/Delivery Room Report SEX: M AGE: 89 : 1925 SURGERY DATE: 10/11/2016 SURGEON: Christiano Flores MD PREOPERATIVE DIAGNOSIS: Right-sided colon cancer, hepatic flexure. POSTOPERATIVE DIAGNOSIS: Right-sided colon cancer, hepatic flexure. PROCEDURE PERFORMED: Laparoscopic right hemicolectomy. PERSONAL PROTECTION SPECIALIST: Daniel Adames MD ANESTHESIA: General endotracheal with the addition of Marcaine in the wounds postprocedure. ESTIMATED BLOOD LOSS: Approximately 20 mL. DESCRIPTION OF PROCEDURE: After appropriate informed consent was obtained, the patient was brought to the operating room. General endotracheal anesthesia was induced. The patient's abdomen was prepped and draped in a sterile fashion. A small supraumbilical incision was created. The Veress needle introduced. The abdomen was insufflated with CO2. A 5 mm trocar was placed. Camera was introduced. The abdomen surveyed. He had really no intraabdominal adhesions. No evidence of any liver lesions. Three additional ports were placed. The cecum was grasped and retracted towards the abdominal wall. This gave us good visualization of the right ileocolic vessel. With this visualized, I was able to isolate it. The mesentery was very thin, so I was able to identify the duodenum easily. With the duodenum identified, the pedicle with the vessel was ligated up high with 2.5 mm staple load on the Endo-LM stapler. Next, the dissection was continued along the duodenum peeling the mesentery away from the duodenum. This was taken up to level of hepatic flexure. The hepatic flexure attachments were taken down with Harmonic scalpel. Dissection was then continued along the white line of Toldt laterally. 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 The appendix was also somewhat stuck with congenital adhesions, but these were easily taken down. This gave us nice mobilization of the bowel. I medialized the cecum and entire right colon. I did end up taking the right branch of middle colic. This was divided with the Harmonic scalpel also. Once I had the bowel adequately mobilized, an incision was made between the upper 2 ports in the midline. Cristóbal wound protector was placed. The bowel was then easily brought up and out through the abdominal wall. I selected an area of the distal ileum to divide for the anastomosis. Any intervening mesentery was ligated and clamped and divided. Ligated with 0 Polysorb ties. Any residual mesentery up to the mid-transverse colon was also ligated and divided. Next, the distal ileum and the mid portion of transverse colon were brought together and performed a [id number] stapled anastomosis with a LM 75 stapler. Couple of incisions were made, one on the antimesenteric surface of small bowel and one along the taenia of the transverse colon. Bowel was brought ADMIT: 10/11/2016 RM/LOC: 523 [facility] MR#: [id number] [address] [place] [id number] [place] [address] Operative/Delivery Room Report SEX: M AGE: 89 : 1925 together. Stapler was introduced, and a LM 75 stapler was fired. It took one additional load of the LM 75 stapler to transect across the bowel subsequently closing the enterotomy and removing the specimen. The specimen was then handed off sent to pathology. Staple lines appeared intact and hemostatic. A good viability at both sides of the bowel. Several silk sutures, 3-0 silk sutures used to imbricate the staple line and also several couple of silk sutures were placed in the crotch of the anastomosis to take tension off the staple line. The bowel was reintroduced to the abdominal cavity. Gloves were changed. The Cristóbal wound protector was removed, and the midline fascia was closed with two #1 single stranded PDS sutures starting at either end and tied in the middle. The abdomen was then re-insufflated. The anastomosis laid nicely in the right upper quadrant. There was no evidence of any bleeding. All the wounds were infiltrated with Marcaine. The left lower quadrant past defect was closed with [id number] 0 Vicryl suture. The abdomen was next desufflated, ports removed, skin closed skin taya. Sterile dressings were applied. Dr. Adames assisted in this entire procedure. His help was necessary for retraction and camera driving. Christiano Flores MD/ sukhdev JOB #: [id number] CC: Christiano Flores, Attending Physician Justin Wall, Family Physician Justin Wall DO
--- NOTE | 2016-10-31 13:33 | DS ---
ADMIT: 10/11/2016 RM/LOC: 416 [facility] MR#: [id number] [address] [address] [place] [address] Discharge Summary SEX: M AGE: 89 : 1925 ADMISSION DATE: 10/11/2016 DISCHARGE DATE: 10/20/2016 ADMITTING DIAGNOSIS: Right-sided colon cancer at the hepatic flexure. DISMISSAL DIAGNOSES: 1. 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 2. Hypertension. 3. DVT (deep venous thrombosis). 4. History of colon polyps. 5. Hyperlipidemia. 6. Previous cataract surgery. 7. Previous CABG (coronary artery bypass graft). 8. Previous EGD (esophagogastroduodenoscopy). PROCEDURES: Laparoscopic right hemicolectomy. HOSPITAL COURSE: The patient was an inpatient admit with routine med/surg orders. After surgery, the patient transferred to the floor without any complications. She was started on sips of clears and was given a morphine PUBLIC HEALTH DIRECTOR for pain control. Dr. Wall was consulted to help with medical management of this case. Once she got to the floor, she became a tele admission. Initially after surgery, the patient was noted to be confused. However, this was a transient episode. She was weaned off her morphine PUBLIC HEALTH DIRECTOR and was tolerating oral pain medications. A Velázquez that was placed intraoperatively was pulled on postop day number two. It was noted that the patient had a run of PVCs and so he was started on a Cardizem drip. Cardiac enzymes were also checked at this time. His diet was tolerated. He did get quite a bit of fluids through his IV while in the hospital and so chest x-ray shows that he was a bit fluid overloaded so we started Lasix. He tolerated a regular diet and had normal return of his bowel function. Entereg was discontinued. He did develop some abdominal pain and loose stools and with a prior history of C. diff colitis his stool tested positive for C. diff. Vancomycin was changed from IV to p.o. at this time. After his initial confusion episode, he had a few more reoccur while in the hospital. He was given some Sinemet which helped. The patient continued to recover well. His confusion improved, his pain was controlled and he was tolerating a regular diet. He was able to discharge to [facility] on 10/20/2016. DISCHARGE INSTRUCTIONS: 1. Regular diet. 2. Pro-time and INR on 10/24/2016. 3. Follow up with Dr. Flores on October 11. 4. Follow up with Dr. Wall on November 03. DISCHARGE MEDICATIONS: 1. Coumadin 1 mg 1300. 2. Culturelle 1 cap daily. ADMIT: 10/11/2016 RM/LOC: 416 [facility] MR#: [id number] [address] [address] [place] [address] Discharge Summary SEX: M AGE: 89 : 1925 3. Lopressor 150 mg b.i.d. 4. Pepcid 10 mg b.i.d. 5. Sinemet 1 tablet t.i.d. 6. Vancomycin oral 125 mg q.i.d. 7. DuoNeb 3 mL q.i.d. 8. DuoNeb 3 mL q.2 p.r.n. 9. Lacri-Lube 3.5 g tube to lash line at night. 10.Natural Tears one drop in both eyes t.i.d. 11.Benadryl 25 mg q.6 p.r.n. 12.Colace 100 mg b.i.d. p.r.n. 13.Imodium 2 mg q.i.d. p.r.n. 14.Maalox 30 mL q.6h p.r.n. 15.Surfak 240 mg b.i.d. p.r.n. 16.Tylenol 650 mg q.4 p.r.n. ROYER Tejada / Christiano Flores MD / vdg JOB #: [id number] CC: Christiano Flores MD, Attending Physician Justin Wall DO, Family Physician
== END 2016-10-20 12:00 | DRG 330 ==
LOC: 4PCU 10-11 06:44 → 5MS 10-11 06:44 → WOR 10-11 06:44 → 5MS 10-11 10:47 → 4PCU 10-16 03:16
PROVIDERS: ADMIT Surgery
PROC: 0DTF4ZZ Resection of Right Large Intestine, Percutaneous Endoscopic Approach (ICD-10-PCS; principal; 2016-10-11)
DX: C18.3 Malignant neoplasm of hepatic flexure (principal); N17.9 Acute kidney failure, unspecified; A04.7 Enterocolitis due to Clostridium difficile; E46 Unspecified protein-calorie malnutrition; E87.70 Fluid overload, unspecified; J44.9 Chronic obstructive pulmonary disease, unspecified; I48.91 Unspecified atrial fibrillation; I13.0 Hypertensive heart and chronic kidney disease with heart failure and stage 1 through stage 4 chronic kidney disease, or unspecified chronic kidney disease; G20 Parkinson's disease; I50.9 Heart failure, unspecified; E78.5 Hyperlipidemia, unspecified; N18.9 Chronic kidney disease, unspecified; I25.2 Old myocardial infarction; Z95.0 Presence of cardiac pacemaker; Z95.1 Presence of aortocoronary bypass graft; Z86.010 Personal history of colon polyps; Z79.01 Long term (current) use of anticoagulants; Z87.891 Personal history of nicotine dependence

== ENCOUNTER 2016-10-26 12:00 | Emergency (ER) | payer MEDICARE, OTHER ==
--- NOTE | 2016-11-03 18:56 | ER ---
ADMIT: 10/26/2016 RM/LOC: ER [facility] MR#: [id number] [address] [address] [place] [address] Emergency Room Report SEX: M AGE: 89 : 1925 DATE: 10/26/2016 ADDENDUM: CHIEF COMPLAINT: Altered mental status. HISTORY OF PRESENT ILLNESS: This is an 89-year-old who sounds like he has had some chronic illnesses recently. He has a history of having pneumonia multiple times, C difficile, and just had a partial colon resection due to colon cancer. Today, I believe this is his last day for vancomycin, but this morning, according to family, he just was not his usual self, very lethargic, and not responsive, hence they brought him into the emergency room. COURSE IN THE EMERGENCY ROOM: CT of his head was done and was negative for any acute findings. Sepsis protocol was ordered. Positive findings. His sodium was high at 151, chloride 119, and potassium is normal at 4.8. His BUN was elevated at 43 and creatinine was 1.7. Albumin low at 2.2. AST elevated at 55. GFR is low at 35. His relative index is elevated at 9, but his CK and MB are normal. His troponin is elevated at 0.057. CBC is normal except for hemoglobin of 11.5 and platelets 425. Urine showed 1+ protein and 2+ blood. His INR is 3.16. Procalcitonin is 0.08. Lactic acid was unable to obtain after drum straightener attempted 5 times to obtain lactic acid. Family requested to stop. I said that was okay. His EKG showed atrial fibrillation at a rate of 93. Chest x-ray was negative for any acute findings and actually was improved from previous, over-read by Dr. Price. I did speak with Dr. Wall regarding this patient. We initially gave him a liter of fluids. After talking to Dr. Wall, he said to give him another liter of fluids, and if he responded to that, he is okay to go home. The family does feel like he has significantly improved. They feel okay taking him back to the senior care. I am discharging him back to [facility] and told him to follow up with Dr. Wall as needed. CLINICAL IMPRESSION: Dehydration. ROYER Mott / Jayson Price MD / sukhdev JOB #: [id number] CC: Jayson Price MD, Attending Physician UNKNOWN, Family Physician
== END 2016-10-26 16:20 | disposition home or self-care (01) ==
LOC: ER 12:00
DX: E86.0 Dehydration (principal); Z90.49 Acquired absence of other specified parts of digestive tract; Z79.01 Long term (current) use of anticoagulants; Z85.038 Personal history of other malignant neoplasm of large intestine; Z87.01 Personal history of pneumonia (recurrent); Z88.8 Allergy status to other drugs, medicaments and biological substances; Z79.899 Other long term (current) drug therapy; Z79.82 Long term (current) use of aspirin